=== PATIENT | male | born 1965 | race Caucasian/White ===

== ENCOUNTER 2017-07-16 16:10 | Emergency (ER) | payer OTHER ==
[2017-07-16] MEDS ORDERED: ASPIRIN 325 MG TABLET PO ONE ×2 (16:26→16:50)
--- NOTE | 2017-07-16 16:34 | PDOC ---
History of Present Illness - General Chief Complaint: Chest Pain Stated Complaint: SHORT OF BREATH Time Seen by Provider: 07/16/17 16:26 - History of Present Illness Initial Comments: 07/16/17 16:35 The patient is a 52 year old male who denies significant PMH who presents for evaluation of shortness of breath with chest pain. The patient reports a 3 day history of worsening shortness of breath. He was initially evaluated by his primary care provider 3 days ago and received bactrim for a presumed pneumonia however the patient reports worsening shortness of breath. The patient then noted shartp 8/10 left and right sided chest pain with radiation into his back earlier this morning prompting his presentation to the ED for evaluation. The patient reports fevers a few days ago but otherwise denies chills, cough, abdominal pain, nausea, vomiting, or changes with urination or bowel movements. Past History - Past Medical History Allergies/Adverse Reactions: Allergies Allergy/AdvReac Type Severity Reaction Status Date / Time No Known Allergies Allergy Unverified 07/16/17 16:36 Home Medications: Ambulatory Orders Aspirin [Aspirin EC] 81 mg PO DAILY 07/16/17 Atorvastatin Ca [Lipitor] 20 mg PO HS 07/16/17 Losartan Potassium [Cozaar] 100 mg PO DAILY 07/16/17 Sildenafil Citrate [Viagra] 50 mg PO ASDIR 07/16/17 Sitagliptin Phos/Metformin HCl [Janumet Xr 100-1,000 mg Tablet] 1 tab PO DAILY 07/16/17 Sulfamethoxazole/Trimethoprim [Bactrim Ds -] 1 tab PO BID 07/16/17 COPD: No - Surgical History Appendectomy: Yes - Suicide/Smoking/Psychosocial Hx Smoking History: Current every day smoker Number of Cigarettes Smoked Daily: 20 Information on smoking cessation initiated: Yes 'Breaking Loose' booklet given: 07/16/17 Hx Alcohol Use: No Drug/Substance Use Hx: No Substance Use Type: None Review of Systems - Review of Systems Comments:: 07/16/17 16:39 Constitutional: No chills, fatigue, malaise HEENT: No Rhinorrhea, nasal congestion, visual changes Cardiovascular: Chest pain. No syncope, palpitations, lightheadedness Respiratory: SOB. No Cough, Hemoptysis, Gastrointestinal: No Abdominal pain, Nausea, Vomiting, Constipation, Diarrhea, Melena Genitourinary: No Dysuria, Frequency, Urgency, Hesitancy, Hematuria, Flank pain Musculoskeletal: No Myalgia, arthralgia Skin: No rashes, itching, bruising, pallor Neurologic: No Headache, Dizziness, Numbness, Weakness, or Tingling Psychiatric: No Hallucinations. No SI or HI *Physical Exam - Vital Signs Last Vital Signs Temp Pulse Resp BP Pulse Ox 98.3 F 90 19 211/116 96 07/16/17 16:15 07/16/17 16:15 07/16/17 16:15 07/16/17 16:15 07/16/17 16:15 - Physical Exam Comments: 07/16/17 17:00 General Appearance: Nourished. In Moderate Apparent Distress HEENT: EOMI, MAURO. No Pharyngeal Erythema, Tonsillar Exudate, Tonsillar Erythema Neck: No Cervical Lymphadenopathy Respiratory/Chest: Lungs Clear, Normal Breath Sounds. No Crackles, Rales, Rhonchi, Wheezing Cardiovascular: Regular Rhythm, Regular Rate. 2/6 (Known) Systolic Murmur noted on exam. No Gallops, Rubs Gastrointestinal/Abdominal: Normal Bowel Sounds, Soft. No Guarding, Rebound, Tenderness Musculoskeletal: No CVA Tenderness Extremity: Normal Capillary Refill Integumentary: Normal Color, Dry, Warm Neurologic: Fully Oriented, Alert, Normal Mood/Affect, Normal Response, Heart Score/ECG Review - History History: Highly suspicious - Electrocardiogram EKG: Significant ST-depression - Age Age: 45-65 - Risk Factors Risk Factors Heart Score: Yes Hx Hypercholesterolemia, Yes Hx Hypertension, Yes Hx Diabetes, Yes Smoking History, Yes Positive family hx of cardiac disease Based on the list above the patient has:: >/=3 risk factors or Hx atherosclerotic disease - Troponin Troponin: </= normal limit - Score Heart Score - Total: 7 #1 ECG reviewed & interpreted by me at: 17:01 (Incomplete RBBB, ST elevations in leads V1-V3 with depressions in leads v5-v6, II, III, aVF) General ECG Interpretation: Sinus Rhythm, Normal Rate, Normal Intervals Compared to previous ECG there are: Previous ECG unavail #2 ECG reviewed & interpreted by me at: 17:05 (Incomplete RBBB, ST elevations in leads v1-v3 with ST depressions in leads v5-v6, II, III, aVF) General ECG Interpretation: Sinus Rhythm, Normal Rate, Normal Intervals ED Treatment Course - LABORATORY CBC & Chemistry Diagram: 07/16/17 16:25 07/16/17 16:25 - RADIOLOGY Radiology Studies Ordered: Category Date Time Status CHEST X-RAY PORTABLE* [RAD] Stat Radiology 07/16/17 16:27 Ordered Medical Decision Making - Medical Decision Making 07/16/17 17:09 The patient is a 52 year old male who denies significant PMH who presents for evaluation of shortness of breath with chest pain. Differential includes but is not limited to: ACS, Dissection, Pneumonia, Infectious, metabolic derangement. Given the patient's history and ekg findings we are concerned for an acute stemi. We have contacted the wharf laborer at [facility]. The patient reports some improvement in pain after nitro. Repeat EKG after improving the patient's BP continues to demonstrate concerning findings for STEMI. We believe the patient requires transfer for urgent cardiology eval. We will treat with aspirin and morphine here in the ED. We will continue to monitor and reassess. 07/16/17 17:15 After discussing the case with Dr. Tesfaye at [facility], the patient has been accepted for ER to ER transfer at this time. We will continue to monitor and reassess the patient in the meantime while awaiting transfer. CBC demonstrates WBC elevation to 26, cmp demonstrates a sodium of 128 and glucose of 300+ with a initial negative troponin of 0.03 *DC/Admit/Observation/Transfer Diagnosis at time of Disposition: Shortness of breath Chest pain Qualifiers: Chest pain type: unspecified Qualified Code(s): R07.9 - Chest pain, unspecified - Discharge Dispostion Disposition: TRANSFER ACUTE CARE/OTHER HOSP Condition at time of disposition: Stable - Referrals Referrals: Kavin Cabezas [Primary Care Provider] - - Patient Instructions Printed Discharge Instructions: DI for Chest Pain - Post Discharge Activity - Transfer to Acute Care Facility Receiving Facility: [facility]. Accepting Physician:: Dr. Tesfaye
--- NOTE | 2017-07-16 16:37 | PDOC ---
Attending Attestation - Medical Decision Making 07/16/17 18:06 Call placed to [facility] at 4:30pm Case discussed with Dr. Kavin Leslie (PCP) at 6:22 pm Documentation prepared by Domi Travis, acting as medical assistant prn for Anju Calderon MD. <Domi Travis - Last Filed: 07/16/17 18:28> - Resident Resident Name: Sean Silva - ED Attending Attestation I have performed the following: I have examined & evaluated the patient, The case was reviewed & discussed with the resident, I agree w/resident's findings & plan, Exceptions are as noted - HPI HPI: 07/16/17 17:57 The patient is a 52 year old male with significant PMH of hypertension, hyperlipidemia, and NIDDM who presents to the emergency department with acute chest pain since this morning. The patient reports that his chest pain is an 8/ 10 in severity and is sharp with radiation to his shoulders and his back. Pain is not worse with inspiration.The patient reports associated worsening SOB and diaphoresis with his chest pain. The patient also reports a fever for 3 days with a tmax of 101 two days ago. He saw his PMD 2 days ago who put him on bactim The patients fiance reports that the patients brother, who is 2 years younger than the patient, recently had an WA. The patient denies any headache, weakness, numbness, dizziness. He denies any headache, chills, abd pain, nausea , vomiting, diarrhea or constipation. The patient has no urinary symptoms. The patient denies any other complaints. Pt is an active cigarette smoker, denies any drug use. Has used viagra in the past, but not for atleast 1 month. No recent travel, immobility or calf pain. Allergies: NKA Past surgical history: Appendectomy Social history: smoker PCP: Not on staff - Physicial Exam PE: 07/16/17 17:57 GENERAL: Awake, alert, and fully oriented. Pale, appears uncomfortable HEAD: No signs of trauma EYES: PERRLA, EOMI, sclera anicteric, conjunctiva clear ENT: Auricles normal inspection, hearing grossly normal, nares patent, oropharynx clear without exudates. Moist mucosa NECK: Normal ROM, supple, no lymphadenopathy, JVD, or masses LUNGS: Breath sounds equal, clear to auscultation bilaterally. No wheezes, and no crackles HEART: Regular rate and rhythm, normal S1 and S2, no murmurs, rubs or gallops. BP 208/88 on R, 210/88 on L ABDOMEN: Soft, nontender, normoactive bowel sounds. No guarding, no rebound. No masses EXTREMITIES: Normal range of motion, no edema. No clubbing or cyanosis. No cords, erythema, or tenderness. Equal femoral and radial pulses b/l. NEUROLOGICAL: Normal speech, cranial nerves intact, negative pronator drift, 5/ 5 strength in all 4 extremities, normal sensation to light touch in all 4 extremities, normal cerebellar exam, normal gait, normal reflexes and tone SKIN: Warm, Dry, normal turgor, no rashes or lesions noted. - Medical Decision Making 07/16/17 17:59 52-year-old male active smoker, history of hypertension, hyperlipidemia and diabetes presents emergency Department with 8 out of 10 sternal chest pain radiating to the shoulders since this morning. Patient hypertensive to the 200s systolic on presentation with equal blood pressures bilaterally and equal pulses bilaterally. EKG concerning for ST elevation WA with reciprocal depressions. First troponin is negative. Patient given a sublingual nitroglycerin with mild improvement in pain as well as morphine with no improvement in pain. Blood pressure is down to the 150 systolic after nitroglycerin, repeat EKG is unchanged. Case discussed with the marketing instructor at [facility], patient has been accepted to Dr. Tesfaye's ( [facility]) service. Patient will be an ER to ER transfer. Patient and his fiance have been informed and consented to transfer. 07/16/17 18:49 PT transferred to [facility] ED. vocational technical education teacher called, informed me that there may be some blast forms on his differential slide but that they could not be officially confirmed until the pathologist reviewed the slide on Tuesday. Discussed this finding with the patient and his fiancee, and informed them that these blast forms may be a sign of cancer. I also called the patients primary physician Dr. Leslie, with whom the pt has been communicating while here in the ED, and informed him of this finding of blasts. I informed him that the patient would be transferred to [facility], but to ensure that when the patient is DCed, this finding would be followed up with a malignancy work up. Dr. Leslie confirmed that this finding is new, and that he would follow it up as an outpt when pt is released from [facility]. <Anju Calderon - Last Filed: 07/19/17 08:34> Heart Score/ECG Review #1 07/16/17 17:58 Twelve-lead EKG was performed and reviewed by me. Normal sinus rhythm, rate 84. Incomplete right bundle branch block. ST elevations in V1 through V2 with reciprocal depressions in V5 to V6 and I, aVL. <Anju Calderon - Last Filed: 07/19/17 08:34>
[2017-07-16] MEDS ORDERED: NITROGLYCERIN SUBLINGUAL 1/150 0.4 MG TAB SL ONE (16:45)
[2017-07-16] MEDS ORDERED: NITROGLYCERIN SUBLINGUAL 1/150 0.4 MG TAB ONE (16:46)
[2017-07-16 16:49] VITALS: TEMP 98.3; BMI 26.2
[2017-07-16 16:51] LABS: HEMATOCRIT 35.5 % (35.4-49); HEMOGLOBIN 11.4 GM/dl (11.7-16.9); MCH 20.6 pg (25.7-33.7); MEAN CELL VOLUME 64.4 fl (80-96); MEAN PLT VOLUME 7.7 fl (7.5-11.1); PLATELET COUNT 124 K/MM3 (134-434); RBC 5.52 M/mm3 (4.00-5.60); RDW 13.4 % (11.9-15.9)
[2017-07-16 16:52] LABS: INR 1.37 (0.82-1.09); PROTHROMBIN TIME (PATIENT) 15.2 SEC (10.2-13.0)
[2017-07-16 16:56] LABS: ADD RBC MORPHOLOGY YES
[2017-07-16] MEDS ORDERED: morphine CARPU-JECT 4 MG/1 ML DISP.SYRIN IVPUSH ONE ×3 (16:57→17:41)
[2017-07-16 16:58] LABS: ALBUMIN 3.4 g/dl (3.5-5.0); ALK PHOS 116 U/L (32-92); ANION GAP 10 (8-16); BILIRUBIN,TOTAL 0.4 mg/dl (0.2-1.0); BLOOD UREA NITROGEN 13 mg/dl (7-18); CALCIUM 8.7 mg/dl (8.4-10.2); CHLORIDE 93 mmol/L (98-107); CO2 25 mmol/L (22-28); MAGNESIUM 1.9 mg/dL (1.8-2.4); POTASSIUM 4.1 mmol/L (3.5-5.1); SGOT/AST 21 U/L (10-42); SGPT/ALT 16 U/L (10-40); SODIUM 128 mmol/L (136-145); TOT PROT 6.5 g/dl (6.4-8.3)
[2017-07-16] MEDS ORDERED: ASPIRIN 81 MG CHEWABLE TABLETS ONE (17:00)
[2017-07-16] MEDS ORDERED: morphine SULFATE 4 MG/ML VIAL ONE ×2 (17:00→17:37)
[2017-07-16 17:04] LABS: GLUCOSE,RANDOM 324 mg/dl (74-106)
[2017-07-16] MEDS ORDERED: ACETAMINOPHEN INJECTION 100 ML IVPB ONE (18:09)
[2017-07-16] MEDS ORDERED: ACETAMINOPHEN 1000 MG/100 ML VIAL (NON FORMULARY) IVPB ONE (18:09)
[2017-07-16 18:38] VITALS: BP 179/75; PULSE 83
[2017-07-16 18:53] LABS: WHITE BLOOD COUNT 26.9 K/mm3 (4.0-10.8)
[2017-07-16 18:56] LABS: ANISOCYTOSIS 1+; OVALOCYTE 1+; TARGET CELLS 1+; TEAR DROP CELLS 1+
--- NOTE | 2017-07-17 08:35 | EKG ---
Test Reason : Blood Pressure : / mmHG Vent. Rate : 084 BPM Atrial Rate : 084 BPM P-R Int : 124 ms QRS Dur : 110 ms QT Int : 376 ms P-R-T Axes : 067 003 096 degrees QTc Int : 444 ms NORMAL SINUS RHYTHM INCOMPLETE RIGHT BUNDLE BRANCH BLOCK NONSPECIFIC ST AND T WAVE ABNORMALITY ABNORMAL ECG NO PREVIOUS ECGS AVAILABLE Confirmed by BURT CARVALHO MD ([id number]) on 07/17/2017 8:35:01 AM Referred By: AYDEE Confirmed By:BURT CARVALHO MD
--- NOTE | 2017-07-19 10:23 | EKG ---
Test Reason : Blood Pressure : / mmHG Vent. Rate : 082 BPM Atrial Rate : 082 BPM P-R Int : 126 ms QRS Dur : 112 ms QT Int : 380 ms P-R-T Axes : 072 022 089 degrees QTc Int : 443 ms NORMAL SINUS RHYTHM INCOMPLETE RIGHT BUNDLE BRANCH BLOCK ABNORMAL ECG NO PREVIOUS ECGS AVAILABLE Confirmed by MD MINDY, BENJAMIN ([id number]) on 07/19/2017 10:22:51 AM Referred By: AYDEE Confirmed By:BENJAMIN GUILLEN MD
== END 2017-07-16 18:42 | disposition short-term general hospital (02) ==
LOC: FER 16:10
PROC: 3E033NZ Introduction of Analgesics, Hypnotics, Sedatives into Peripheral Vein, Percutaneous Approach (ICD-10-PCS; principal; 2017-07-16)
DX: R06.02 Shortness of breath (principal); R07.9 Chest pain, unspecified
CPT/HCPCS: 36415; 71045-TC-FY; 80053; 82550; 83735; 83880; 84484; 85025; 85610; 93005; 99285-25; J0131